=== PATIENT | male | born 1945 | race Caucasian/White ===

== ENCOUNTER 2020-04-02 20:30 | Emergency (ER) | payer MEDICARE, OTHER ==
[2020-04-02 21:25] LABS: ABSOLUTE EOSINOPHILS # (AUTO) 0.1 10^3/uL (0.0-0.6); ABSOLUTE LYMPHOCYTES (AUTO) 0.7 10^3/uL (0.5-4.7); ABSOLUTE MONOCYTES (AUTO) 0.3 10^3/uL (0.1-1.4); BASOPHILS % (AUTO) 0.7 % (0-2); EOSINOPHILS % (AUTO) 2.4 % (0-6); HEMATOCRIT 21.4 % (37.9-51.0); LYMPHOCYTES % (AUTO) 21.2 % (13-45); MEAN CORPUSCULAR HEMOGLOBIN 29.5 pg (27.0-33.4); MEAN CORPUSCULAR HGB CONC 33.5 g/dL (32.0-36.0); MEAN CORPUSCULAR VOLUME 88 fl (80-97); RED BLOOD COUNT 2.43 10^6/uL (4.35-5.55); RED CELL DISTRIBUTION WIDTH 14.9 % (11.5-14.0); SEGMENTED NEUTROPHILS % (AUTO) 64.7 % (42-78); TOTAL CELLS COUNTED % (AUTO) 100 %; WHITE BLOOD COUNT 3.1 10^3/uL (4.0-10.5)
[2020-04-02 21:30] LABS: ALBUMIN 2.6 g/dL (3.5-5.0); ALKALINE PHOSPHATASE 48 U/L (38-126); ANION GAP 5 (5-19); ASPARTATE AMINO TRANSFERASE 34 U/L (17-59); BILIRUBIN,TOTAL 0.4 mg/dL (0.2-1.3); BLOOD UREA NITROGEN 39 mg/dL (7-20); CALCIUM 9.7 mg/dL (8.4-10.2); CARBON DIOXIDE 22 mmol/L (22-30); CHLORIDE 108 mmol/L (98-107); GLUCOSE 209 mg/dL (75-110); POTASSIUM 4.5 mmol/L (3.6-5.0); TOTAL PROTEIN 5.7 g/dL (6.3-8.2)
[2020-04-02 22:15] LABS: PLATELET COUNT 71 10^3/uL (150-450)
[2020-04-02 22:18] LABS: HEMOGLOBIN 7.2 g/dL (13.5-17.0)
[2020-04-02] MEDS ORDERED: NORMAL SALINE 250 ML IV PRN ×2 (23:50)
[2020-04-02] MEDS ORDERED: FAMOTIDINE INJ/PF 20 MG/2 ML SDV IV ONE (23:53)
[2020-04-02] MEDS ORDERED: PANTOPRAZOLE SODIUM 40 MG VIAL IV ONE (23:53)
--- NOTE | 2020-04-03 | ER Document Report ---
ED General - General Chief Complaint: Lower Abdominal Pain Stated Complaint: ABDOMINAL PAIN Time Seen by Provider: 04/02/20 23:44 Mode of Arrival: Ambulatory Information source: Patient Notes: 04/02/20 20:48 - ED Nursing Note by MARICRUZ OSCAR [facility] Num: [id number] : 1945 Patient Age: 74 Pt arrived via EMS with reports of Lower abdominal pain and tenderness and vomiting bright red blood with clots present x1. EMS reports pt was out with family when they pulled over on side of road due to pt feeling ill. Pt reports feeling unwell since this morning with nausea. Pt denies chest pain, SOB and dizziness. Pt reports hx of radiation treatment to right frontal head 3 times/week, with 6 treatments completed. BReath sounds e/u, CTA lungs bilaterally. my notes 74-year-old male arrives with 18 hours of lower abdominal pain pointing to his right and left lower quadrants. Patient denies any prior history of similar symptoms. He has been vomiting bright red blood today prior to arrival. 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 He denies any prior history of GI bleed. His hemoglobin is 7.2 at this time. Patient has been feeling very weak and short of breath and ROCHA today. Yesterday he was doing well. Patient reports she is from [facility] and would prefer to go to [place] or [place] because of his condition. He says he stopped drinking alcohol w hen he was 68 years old. He has been told he has a fatty liver. CT scan today reveals liver cirrhosis esophageal varices and ascites of abdomen. - HPI Onset: Just prior to arrival Onset/Duration: Sudden, Persistent Quality of pain: Achy Severity: Moderate Pain Level: 2 Associated symptoms: Nausea, Vomiting - Hematemesis, Weakness Exacerbated by: Denies Relieved by: Denies Similar symptoms previously: No Recently seen / treated by doctor: No - Related Data Allergies/Adverse Reactions: No Known Allergies Allergy (Verified 04/02/20 20:45) Home Medications: Dutasteride-Tamsulosin. Glimpride. Amitiza. Lasix. Lutein. Vitamin D3. Colesezum. Losartan Potassium. Aspirin Dityridam. Kombigl. Sertraline. Senofibrate. Omeprazole Past Medical History - General Information source: Patient - Social History Smoking Status: Never Smoker Cigarette use (# per day): No Chew tobacco use (# tins/day): No Smoking Education Provided: No Frequency of alcohol use: None Drug Abuse: None Lives with: Family Family History: Reviewed & Not Pertinent Patient has suicidal ideation: No Patient has homicidal ideation: No - Past Medical History Cardiac Medical History: Reports: Hx Hypercholesterolemia, Hx Hypertension Review of Systems - Review of Systems Constitutional: See HPI, Malaise, Weakness, Recent illness EENT: No symptoms reported Cardiovascular: No symptoms reported Respiratory: No symptoms reported Gastrointestinal: See HPI, Abdominal pain, Nausea, Vomiting, Blood in vomit Genitourinary: No symptoms reported Male Genitourinary: No symptoms reported Musculoskeletal: No symptoms reported Skin: No symptoms reported Hematologic/Lymphatic: No symptoms reported Neurological/Psychological: No symptoms reported Physical Exam - Vital signs Vitals: Pulse Resp Pulse Ox 102 H 19 96 04/02/20 20:37 04/02/20 20:37 04/02/20 20:37 Interpretation: Tachycardic - General General appearance: Appears well - HEENT Head: Normocephalic, Atraumatic Eyes: Pale conjunctiva Pupils: PERRL Pharynx: Normal - Leg is 1999 for Neck: Normal - Respiratory Respiratory status: No respiratory distress - Cardiovascular Rhythm: Tachycardia Heart sounds: Normal auscultation - Abdominal Inspection: Normal Bowel sounds: Normal - Rectal Hemorrhoids: None - Genitourinary Tenderness: Nontender Scrotum: Normal - Back Back: Normal - Extremities General upper extremity: Normal inspection General lower extremity: Normal inspection - Neurological Neuro grossly intact: Yes Cognition: Normal Orientation: AAOx4 Wm Coma Scale Eye Opening: Spontaneous Wm Coma Scale Verbal: Oriented Wm Coma Scale Motor: Obeys Commands Wm Coma Scale Total: 15 Speech: Normal Motor strength normal: LUE, RUE, LLE, RLE Sensory: Normal - Psychological Associated symptoms: Normal affect - Skin Skin Temperature: Warm Skin Moisture: Dry Course - Vital Signs Vital signs: Temp Pulse Resp BP Pulse Ox 98.2 F 99 12 122/65 99 04/03/20 01:30 04/03/20 01:30 04/03/20 01:30 04/03/20 01:30 04/03/20 01:30 - Laboratory Result Diagrams: 04/02/20 20:57 04/02/20 20:57 Laboratory results interpreted by me: 04/02/20 04/02/20 04/02/20 20:57 20:57 22:50 WBC 3.1 L RBC 2.43 L Hgb 7.2 L Hct 21.4 L RDW 14.9 H Plt Count 71 L Sodium 135.4 L Chloride 108 H BUN 39 H Glucose 209 H Total Protein 5.7 L Albumin 2.6 L Crossmatch See Detail - Diagnostic Test Radiology reviewed: Reports reviewed Radiology results interpreted by me: 04/03/20 02:02 Esophageal varices liver cirrhosis and ascites Critical Care Note - Critical Care Note Total time excluding time spent on procedures (mins): 90 Comments: I advised patient of his CT findings and he advised me he used to drink alcohol up until 5 years of age. He lives in [facility] and prefers to be in [place] or [facility]. This is closer to his home. I then called [facility] and spoke with Ramya pheresis specialist and she advises she will run this by hospitalist. Ramya pheresis specialist called back at around 0 [phone] and I spoke with GI specialist Dr. Zain Peralta. The admitting doctor however will be Dr. Yefri Toro Discharge - Discharge Clinical Impression: Esophageal varices in cirrhosis GI bleed Qualifiers: GI bleed type/associated pathology: unspecified gastrointestinal hemorrhage type Qualified Code(s): K92.2 - Gastrointestinal hemorrhage, unspecified Esophageal varices Qualifiers: Esophageal varices type: unspecified type Esophageal varices bleeding: with bleeding Qualified Code(s): I85.01 - Esophageal varices with bleeding Disposition: [place] Additional Instructions: Transfer this patient to [place]
--- NOTE | 2020-04-03 01:25 | RADIOLOGY REPORT (SQ) ---
EXAM DESCRIPTION: CT ABDOMEN PELVIS WITH IV CONTRAST COMPLETED DATE/TME: 04/03/2020 00:07 CLINICAL HISTORY: 74 years, Male, hematemesis COMPARISON: None. TECHNIQUE: Axial CT images of the pelvis were obtained after the injection of IV contrast. Sagittal and coronal reformats were performed. DLP 1200 Images stored on PACS. All CT scanners at this facility use dose modulation, iterative reconstruction, and/or weight based dosing when appropriate to reduce radiation dose to as low as reasonably achievable (ALARA). [facility]: Dose Right [facility]: CareDose [facility]: Dose Right [facility]: Teradose 4D [facility]: Smart Chef [place] LIMITATIONS: None. FINDINGS: Lung bases are clear. The liver has a mildly nodular contour and measures 15.5 cm. The main portal vein is patent and measures up to 1.4 cm in diameter. Small esophageal varices are noted. The gallbladder, pancreas and adrenal glands are unremarkable. The spleen measures 15.9 cm. Both kidneys enhance normally. No evidence of hydronephrosis. There is no intraperitoneal free air. There is a moderate amount of ascites. There are atherosclerotic ossifications of the abdominal aorta. There is no lymphadenopathy. The stomach and small bowel appear unremarkable. The appendix is not uniquely identified. The colon contains a moderate amount of stool. The prostate gland contains calcifications. The urinary bladder is unremarkable. There are no lytic or blastic bone lesions. IMPRESSION: Cirrhotic appearing liver with findings of portal hypertension with gastroesophageal varices and splenomegaly. Moderate amount of ascites. TECHNICAL DOCUMENTATION: Quality ID # [id number]: Final reports with documentation of one or more dose reduction techniques (e.g., Automated exposure control, adjustment of the mA and/or kV according to patient size, use of iterative reconstruction technique) copyright 2011 [employer]- All Rights Reserved
[2020-04-03 07:33] VITALS: BP 146/76
--- NOTE | 2020-04-03 07:40 | ER Document Report ---
Doctor's Note Notes: 04/03/20 07:38 Patient with history of upper GI bleed with esophageal varices and liver disease. Patient has received IV blood transfusion and is feeling better at this time. Patient has been accepted at [facility] and is being transported by ground in a few minutes at this time. Patient is hemodynamically stable not vomiting not showing any signs of distress at this time. No signs of any active bleeding at this time. [facility] transport team is at bedside preparing for patient to be transported. At this time patient is medically stable and she does not have any complications expected].
== END 2020-04-03 07:45 | disposition short-term general hospital (02) ==
LOC: ER 20:30
DX: K74.60 Unspecified cirrhosis of liver (principal); I85.11 Secondary esophageal varices with bleeding; R18.8 Other ascites; R10.31 Right lower quadrant pain; R10.32 Left lower quadrant pain; R06.02 Shortness of breath; R53.1 Weakness; R53.81 Other malaise; R00.0 Tachycardia, unspecified; I10 Essential (primary) hypertension; C44.309 Unspecified malignant neoplasm of skin of other parts of face; Z92.3 Personal history of irradiation; Z79.899 Other long term (current) drug therapy; Z79.82 Long term (current) use of aspirin; Z79.84 Long term (current) use of oral hypoglycemic drugs
CPT/HCPCS: 99285; 96374; 96375; 86900; 86901; 36415; 36430; 86850; 83690; 85025; 80053; 86920; 74177; P9016; C9113; S0028